=== PATIENT | female | born 1985 | race Caucasian/White ===

== ENCOUNTER 2025-02-06 10:11 | Outpatient (CLI) | payer OTHER, SELFPAY ==
--- NOTE | 2025-02-06 10:45 | CRLHL7_ITS ---
For Patients: As a result of the Century Cures Act, medical imaging exams and procedure reports are released immediately into your electronic medical record. You may view this report before your referring provider. If you have questions, please contact your health care provider. DIGITAL DIAGNOSTIC BILATERAL MAMMOGRAM USING TOMOSYNTHESIS AND COMPUTER-AIDED DETECTION RIGHT BREAST ULTRASOUND CLINICAL HISTORY: RIGHT breast lump. COMPARISON: 05/23/2022. TECHNIQUE: Digital BILATERAL mammogram in four projections with computer-aided detection. Tomosynthesis was used in this interpretation. Real-time ultrasound imaging of RIGHT breast with imaging documentation. Scanning was performed by both the technologist and the radiologist. BREAST COMPOSITION: There are scattered areas of fibroglandular density. FINDINGS: 3D CC/MLO BILATERAL mammogram images submitted. No suspicious masses or architectural distortion. No suspicious calcifications or adenopathy. Targeted ultrasound performed in the area of concern at 11 o`clock 3 cm from the nipple. Normal fibroglandular tissue is present with no evidence of shadowing lesion. Findings are similar to the upper outer quadrant of the LEFT breast. IMPRESSION: No suspicious findings. No evidence of malignancy. RECOMMENDATIONS: Routine screening mammography. A lay language report of this examination will be provided to the patient. BI-RADS Category 2: Benign Dictated by Arturo Aguilar MD @ 02/06/2025 12:31:28 PM jj/Dictated by: Arturo Aguilar MD @ 02/06/2025 12:31:00 PM (Electronically Signed)
--- NOTE | 2025-02-06 11:15 | CRLHL7_ITS ---
For Patients: As a result of the Cures Act, medical imaging exams and procedure reports are released immediately into your electronic medical record. You may view this report before your referring provider. If you have questions, please contact your health care provider. SEE DIGITAL DIAGNOSTIC BILATERAL MAMMOGRAM PERFORMES SAME DAY CRL:prabha armando/Dictated by: Arturo Aguilar MD @ 02/06/2025 12:31:00 PM (Electronically Signed)
== END 2025-02-06 10:12 | disposition home or self-care (01) ==
LOC: MAMMO 10:11
PROVIDERS: PCP Physician Assistant Medical; Visit Provider Physician Assistant Medical
DX: N63.11 Unspecified lump in the right breast, upper outer quadrant (principal); N64.59 Other signs and symptoms in breast
CPT/HCPCS: 76642; 77066; G0279

== ENCOUNTER 2025-02-10 10:07 | Outpatient (CLI) | payer OTHER, SELFPAY | END 2025-02-10 10:08 | disposition home or self-care (01) | LOC: NFLDREF 02-11 08:59 | PROVIDERS: PCP Physician Assistant Medical; Referring Provider Physician Assistant Medical; Visit Provider Physician Assistant Medical | DX: E66.01 Morbid (severe) obesity due to excess calories (principal); R79.89 Other specified abnormal findings of blood chemistry; R73.01 Impaired fasting glucose; E78.5 Hyperlipidemia, unspecified; I10 Essential (primary) hypertension; N39.0 Urinary tract infection, site not specified; F41.9 Anxiety disorder, unspecified; Z12.4 Encounter for screening for malignant neoplasm of cervix; Z11.3 Encounter for screening for infections with a predominantly sexual mode of transmission; Z11.59 Encounter for screening for other viral diseases | CPT/HCPCS: 80053; 80061; 84443; 86703; 86803; 87086 ==

== ENCOUNTER 2025-02-12 11:43 | Outpatient (CLI) | payer OTHER, SELFPAY ==
[2025-02-12 12:21] LABS: Lab Add On Test New Spec Needed
[2025-02-12 23:24] LABS: Chlamydia DNA Amplified* NOT DETECTED (No Detected); GC DNA Amplified* NOT DETECTED (No Detected)
[2025-02-14 05:39] LABS: HPV Source Cervix; HPV, High Risk by TMA Not Detected
[2025-02-20 14:59] LABS: Pap Test Reviewed by Path Done
== END 2025-02-12 11:44 | disposition home or self-care (01) ==
PROVIDERS: PCP Physician Assistant Medical; Visit Provider Physician Assistant Medical
DX: R73.01 Impaired fasting glucose (principal); R79.89 Other specified abnormal findings of blood chemistry; Z12.4 Encounter for screening for malignant neoplasm of cervix
CPT/HCPCS: 87491; 87591; 87624; 87625; 88141; 88142

== ENCOUNTER 2025-07-21 12:18 | Emergency (ER) | payer OTHER, SELFPAY ==
--- OUTSIDE RECORDS SUMMARY | 2025-07-21 12:20 | XMS_ITS | Clinical Summary ---
Author Organization [facility] Address [address] [place] [address] Care Team Providers Care Slasher Operator Name Role Phone Elsewhere, Pcp Primary Care Provider Unavailabl e Source Comments Patient records contain information from all sites at [facility]. For routine questions regarding patient records, call [phone] during business hours, M-F 8:00 AM - 5:00 PM Central Time. 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 albuterol 90 mcg/actuation inhaler Inhale 2 puffs as needed. 8 Active escitalopram (LEXAPRO) 20 mg tablet Take 20 mg by mouth daily. 2 Active citalopram (CeleXA) 20 mg tablet Take 20 mg by mouth daily. Active rosuvastatin (CRESTOR) 5 mg tablet Take 5 mg by mouth daily. Active tirzepatide (Zepbound) 2.5 mg/0.5 mL injectionIndica tions:Steatohep atitis Non Alcoholic,Morbi d Obesity Body Mass Index 40.0-44.9 Adult (HCC) Inject 2.5 mg under the skin every 7 (seven) days. Month #1. Follow dose titration instructions, as tolerated. May increase to next higher strength after four weekly doses. Refill is permitted if extended use at this dose is needed. 2 mL 1 4 Active tirzepatide (Zepbound) 5 mg/0.5 mL injectionIndica tions:Steatohep atitis Non Alcoholic,Morbi d Obesity Body Mass Index 40.0-44.9 Adult (HCC) Inject 5 mg under the skin every 7 (seven) days. Month #2. Follow dose titration instructions, as tolerated. May increase to next higher strength after four weekly doses. Refill is permitted if extended use at this dose is needed. 2 mL 1 4 Active tirzepatide (Zepbound) 7.5 mg/0.5 mL injectionIndica tions:Steatohep atitis Non Alcoholic,Morbi d Obesity Body Mass Index 40.0-44.9 Adult (HCC) Inject 7.5 mg under the skin every 7 (seven) days. Month #3. Follow dose titration instructions, as tolerated. May increase to next higher strength after four weekly doses. Refill is permitted if extended use at this dose is needed. 2 mL 1 4 Active tirzepatide (Zepbound) 10 mg/0.5 mL injectionIndica tions:Steatohep atitis Non Alcoholic,Morbi d Obesity Body Mass Index 40.0-44.9 Adult (HCC) Inject 10 mg under the skin every 7 (seven) days. Month #4. Follow dose titration instructions, as tolerated. May increase to next higher strength after four weekly doses. Refill is permitted if extended use at this dose is needed. 2 mL 1 4 Active tirzepatide (Zepbound) 12.5 mg/0.5 mL injectionIndica tions:Steatohep atitis Non Alcoholic,Morbi d Obesity Body Mass Index 40.0-44.9 Adult (HCC) Inject 12.5 mg under the skin every 7 (seven) days. Month #5. Follow dose titration instructions, as tolerated. May increase to next higher strength after four weekly doses. Refill is permitted if extended use at this dose is needed. 2 mL 1 4 Active tirzepatide (Zepbound) 15 mg/0.5 mL injectionIndica tions:Steatohep atitis Non Alcoholic,Morbi d Obesity Body Mass Index 40.0-44.9 Adult (HCC) Inject 15 mg under the skin every 7 (seven) days. Month #6 and continue. 2 mL 11 4 Active valsartan (Diovan) 80 mg tablet Take 1 tablet by mouth daily. 5 Active Active Problems Problem Noted Date Diagnosed Date Morbid Obesity Body Mass Index 40.0-44.9 Adult 0 05/01/2024 Steatohepatitis Non Alcoholic 07/07/2022 Hyperlipidemia 09/22/2016 Encounters Date Type Department Care Team Description 06/04/2025 9:01 AM CDT - 06/04/2025 11:59 PM CDT Hospital Encounter Department of Radiology, [facility], in [address] [phone] Selina Brennan M.D. Madhavan, Ajay A, M.D. Pain Low Back Unspecified Discharge Disposition: Home or Self Care 06/01/2025 3:00 PM CDT Office Visit Department of Physical Medicine and Rehabilitation in [address] [phone] Selina Brennan M.D. Pain Low Back Unspecified (Primary Dx) 06/01/2025 11:43 AM CDT - 06/01/2025 11:59 PM CDT Hospital Encounter Department of Radiology, [facility], in [address] [phone] Selina Brennan M.D. Pain Low Back Unspecified Discharge Disposition: Home or Self Care 05/28/2025 Orders Only Virtual Review in [address] [phone] Jessica Salazar from Last 3 Months Immunizations Immunization Administration Dates Next Due Influenza Split 09/20/2015 MMR 07/21/2014 Tdap 07/11/2018, 4,06/30/2014,2012 influenza trivalent vaccine (6 months and older)(PF) 09/17/2014,10/03/2013,08/15/2012 influenza vaccine quad (FLUZONE/FLUARIX) (6 months and older)(PF) 09/04/2023,10/09/2022,08/29/2019,2017,10/04/2017,09/22/2016 Family History Medical History Relation Name Comments ADD Father Kiko Arita Asthma Father Kiko Arita Hyperlipidemia Father Kiko Arita Kidney cancer Father Kiko Arita Other cancer Father Kiko Arita Bladder cancer Skin cancer Maternal Grandfather Haris Villalta Arthritis Maternal Grandmother Mila Villalta Diabetes Mother Mother Hypertension Mother Mother Sleep apnea Mother Mother Coronary artery disease Paternal Grandfather Nishant Lombardo uan Lung cancer Paternal Grandfather Nishant Arita Breast cancer Paternal Grandmother Glenny Arita Asthma Son 1 Andreas Oropeza ADD Son 2 Trist Asthma Son 3 Andreas Oropeza ADD Son 4 Trist Relation Name Status Comments Father Kiko Arita Maternal Grandfather Haris Villalta Maternal Grandmother Mila Villalta Mother Mother Paternal Grandfather Nishant Arita Paternal Grandmother Glenny Arita Son 1 Andreas Oropeza Son 2 Trist Son 3 Andreas Oropeza Alive Son 4 Trist Alive Social History Tobacco Use Types Packs/Day Years Used Date Smoking Tobacco: Never Smokeless Tobacco: Never Tobacco Cessation:Counseling Given: Not Answered Alcohol Use Standard Drinks/Week Comments Yes 7 (1 standard drink = 0.6 oz pur e alcohol) [facility] Utilities Answer Date Recorded In the past 12 months has [facility] [employer], [employer], or [employer] threatened to shut off services in your home? No 05/29/2025 Humiliation, Afraid, Rape, and Kick questionnair e Answer Date Recorded Within the last year, have y ou been afraid of your partner or ex-partner? No 04/03/2023 Within the last year, have y ou been humiliated or emotionally abused in other ways by your partner or ex-partner? No Within the last year, have y ou been kicked, hit, slapped, or otherwise physically hurt by your partner or ex-partner? No 04/03/2023 Within the last year, have y ou been raped or forced to have any kind of sexual activity by your partner or ex-partner? No 04/03/2023 Hunger Vital Sign Answer Date Recorded Within the past 12 months, y ou worried that your food would run out before you got the money to buy more. Never true 05/29/20 25 Within the past 12 months, t he food you bought just didn't last and you didn't have money to get more. Never true 05/29/2025 PRAPARE - Transportation Answer Date Re corded In the past 12 months, has l ack of transportation kept you from medical appointments or from getting medications? No 05/19 In the past 12 months, has l ack of transportation kept you from meetings, work, or from getting things needed for daily living? No 05/29/2025 Housing Stability Answer Date Recorded What is your living situation today? I have a [facility] place to live 05/29/2025 Education Answer Date Recorded What is the highest level of school you have completed or the highest degree you have received? 12th grade 04/03/2023 Comments No Sex and Gender Information Value Date Recorded Sex Assigned at Female 05/18/2022 8:15 PM CDT Legal Sex Female 10:17 AM [employer] Gender Identity Female 05/18/2022 8:15 PM CDT Sexual Orientation Straight 05/18/2022 8: 15 PM CDT Last Filed Vital Signs Vital Sign Reading Time Taken Comments Blood Pressure 111/73 06/04/2025 10:23 AM CDT Pulse 77 06/04/2025 10:13 AM CDT Temperature 37.1 C (98.8 F) 06/04/2025 10:04 AM CDT Respiratory Rate 19 10/30/2023 12:1 5 PM [employer] Oxygen Saturation 99% 06/04/2025 10: 23 AM CDT Inhaled Oxygen Concentration - - Weight 120 kg (264 lb 8.8 oz) 4 4:27 PM CDT self reported Height 166.7 cm (5' 5.63) 08/01/2022 1 0:11 AM CDT Body Mass Index 43.18 08/01/2022 10:11 AM CDT Plan of Treatment Health Maintenance Due Date Last Done Comments Cervical/Vaginal Cancer Screening 1984 HIV Screening 1984 Hepatitis A Vaccines (1 of 2 - Risk 2-dose series) 2003 Hepatitis B Vaccines (1 of 3 - 19+ 3-dose series) 2003 Pneumococcal vaccine (0-49 years) (1 of 2 - PCV) 2003 HPV Vaccines (1 - 3-dose SCDM series) 2011 Mammogram 05/23/2023 05/23/2022 COVID-19 Vaccine ( season) 2024 09/22/2021, 03/22/2021, 03/01/2021 Creatinine Level (Kidney Function Test) 10/30/2024 10/30/2023, 06/24/2023, 05/18/2022, Additional history exists Potassium Level 10/30/2024 10/30/2023, 08/0 04/2023, 05/18/2022, Additional history exists Sodium Level 10/30/2024 10/30/2023, 08/0 04/2023, 05/18/2022, Additional history exists Depression Screening (Annual PHQ-2) 11/19/2024 Influenza Vaccine (#1) 2025 , 09/04/2023, 10/09/2022, Additional history exists Lipid (Cholesterol) Screening 10/03/2027 10/03/2022, 07/21/2022, 05/18/2022, Additional history exists DTaP,Tdap,and Td Vaccines (5 - Td or Tdap) 07/11/2028 07/11/2018, 07/20/2014, 06/30/2014, Additional history exists Hepatitis B Screening Discontinued 05/26/2022 IPV Vaccines Aged Out No longer eligi ble based on patient's age to complete this topic Procedures Procedure Name Priority Date/Time Associated Diagnosis Comments FL SACROILIAC JOINT INJECTION BILATERAL RAD - Routine (most inpatients and all outpatients) 06/04/2025 10:20 AM CDT Pain Low Back Unspecified DX LUMBAR SPINE 4+ VIEWS RAD - Routine (most inpatients and all outpatients) 06/01/2025 12:36 PM CDT Pain Low Back Unspecified BASIC METABOLIC PANEL, S/P STAT 10/30/2023 10:31 AM [employer] LIPID PANEL, S Routine 10/03/2022 11:30 AM [employer] Morbid Obesity Body Mass Index 40.0-44.9 Adult (HCC) Hyperlipidemia HEPATITIS B SURFACE ANTIGEN Routine 05/26/2022 9:40 AM CDT Abnormal Liver Function Test BI BREAST SCREENING BILATERAL WITH TOMOSYNTHESIS RAD - Routine (most inpatients and all outpatients) 05/23/2022 2:52 PM CDT Screening Mammogram Breast Cancer from Last 3 Months or Most Recently Relevant to Health Maintenance Results * FL Sacroiliac Joint Injection Bilateral (06/04/2025 10:20 AM CDT) Impressions [id number] - 06/04/2025 10:59 AM CDT Fluoroscopically-guided bilateral sacroiliac joint injections. NR Narrative [id number] - 06/04/2025 10:59 AM CDT EXAM: FL SACROILIAC JOINT INJECTION BILATERAL Pain Score: Pre-procedural pain was rated: 3/10 Post-procedural pain was rated: 1/10 Medications: Steroid: 9 mg betamethasone Local anesthetic: 22.5 mg 0.5% ropivacaine INDICATION: The patient reports the current pain syndrome to be of >1 year duration and presents today for a maintenance injection. TECHNIQUE: Patient has chronic low back pain around the SI joints which has previously responded to SI joint injections. Repeated injections were requested and performed. Using usual sterile technique, fluoroscopic guidance, and local anesthesia, 4.75 inch 25-gauge spinal needles were advanced to the posterior inferior aspect of both sacroiliac joints. With final needle tip positions, a small amount of iodinated contrast was used to confirm each location. Transient vascular uptake was not observed with final needle positions. 3 cc of 3:1 mixture of anesthetic:steroid was administered at each joint. Each needle was withdrawn, restyletted, and removed. The patient experienced no complication. PREPROCEDURE: Patient seen and evaluated. Allergies, pertinent medications, and history reviewed. Discussed risks (including, but not limited to, bleeding and infection); benefits; and alternatives for procedure and obtained informed consent. The side and site of the procedure were marked, when applicable, at the time of consent. The patient understood the information and questions answered. Immediately prior to starting the procedure in the presence of the assisting personnel, a procedural pause was conducted to verify correct patient identity and verification of procedure to be performed and as applicable, correct side and site, correct patient position, availability of implants, special equipment, or special requirements, and all image and specimen identification data. The roles and responsibilities of care team members, residents, and fellows were discussed. Procedure Note Sam Salinas M.D. - 06/04/2025 EXAM: FL SACROILIAC JOINT INJECTION BILATERAL Pain Score: Pre-procedural pain was rated: 3/10 Post-procedural pain was rated: 1/10 Medications: Steroid: 9 mg betamethasone Local anesthetic: 22.5 mg 0.5% ropivacaine INDICATION: The patient reports the current pain syndrome to be of >1 yearduration and presents today for a maintenance injection. TECHNIQUE: Patient has chronic low back pain around the SI joints which haspreviously responded to SI joint injections. Repeated injections wererequested and performed. Using usual sterile technique, fluoroscopic guidance, and localanesthesia, 4.75 inch 25-gauge spinal needles were advanced to theposterior inferior aspect of both sacroiliac joints. With final needle tippositions, a small amount of iodinated contrast was used to confirm each location. Transient vascular uptake was notobserved with final needle positions. 3 cc of 3:1 mixture ofanesthetic:steroid was administered at each joint. Each needle waswithdrawn, restyletted, and removed. The patient experienced no complication. PREPROCEDURE: Patient seen and evaluated. Allergies, pertinentmedications, and history reviewed. Discussed risks (including, but notlimited to, bleeding and infection); benefits; and alternatives forprocedure and obtained informed consent. The side and site of the procedure were marked, when applicable, at the time ofconsent. The patient understood the information and questions answered.Immediately prior to starting the procedure in the presence of theassisting personnel, a procedural pause was conducted to verify correct patient identity and verification of procedureto be performed and as applicable, correct side and site, correct patientposition, availability of implants, special equipment, or specialrequirements, and all image and specimen identification data. The roles and responsibilities of care teammembers, residents, and fellows were discussed. IMPRESSION: Fluoroscopically-guided bilateral sacroiliac joint injections. NR us Selina Brennan M.D. IM FLUOROSCOPY PROCEDURES Final Result [id number] NA * DX Lumbar Spine 4+ Views (06/01/2025 12:36 PM CDT) Anatomical Region Laterality Modality Lumbar Spine, Musculoskeleta l RST LOS, Neuroradiology ARZ LOS, Muskuloskeletal FLA LOS N/A Digital Radiography Impressions 06/01/2025 12:37 PM CDT Mild to moderate multilevel degenerative spondylosis with low-grade vertebral malalignments. No change in alignment between flexion and extension views. Narrative 06/01/2025 12:37 PM CDT EXAM: DX LUMBAR SPINE 4+ VIEWS Procedure Note Roger Solo M.D. - 06/01/2025 EXAM: DX LUMBAR SPINE 4+ VIEWS IMPRESSION: Mild to moderate multilevel degenerative spondylosis with low-gradevertebral malalignments. No change in alignment between flexion andextension views. us Selina Brennan M.D. IMG DIAGNOSTIC IMAGING PRO CEDURES Final Result * Basic Metabolic Panel (10/30/2023 10:31 AM [employer]) Potassium, P 4.0 3.6 - 5.2 mmol/L 10/30/2023 10:58 AM [employer] STMA Sodium, P 138 135 - 145 mmol/L 10/30/2023 10:58 AM [employer] STMA Chloride, P 101 98 - 107 mmol/L 10/30/2023 10:58 AM [employer] STMA Bicarbonate, P 25 22 - 29 mmol/L 10/30/2023 10:58 AM [employer] STMA Anion Gap, P 12 7 - 15 10/30/2023 10:58 AM [employer] STMA BUN (Blood Urea Nitrogen), P 10 6 - 21 mg/dL 10/30/2023 10:58 AM [employer] STMA Creatinine 0.69 0.59 - 1.04 mg/dL 10/30/2023 10:58 AM [employer] STMA Estimated GFR (eGFR) >90 >=60 mL/min/BSA 10/30/2023 10:58 AM [employer] STMA Comment: Estimated GFR calculated using the 2020 CKD_EPI creatinine equation. Calcium, Total, P 9.7 8.6 - 10.0 mg/dL 10/30/2023 10:58 AM [employer] STMA Glucose, P 98 70 - 140 mg/dL 10/30/2023 10:58 AM [employer] STMA Blood (Blood, Venous) 10/30/2023 10:31 AM [employer] 10/30/2023 10:41 AM [employer] us Carmen Pacheco M.D. LAB BLOOD ADD-ON Final Res ult [facility] [address] [place] [address], [facility] [address] [place] [address] * (ABNORMAL) Lipid Panel (10/03/2022 11:30 AM [employer]) Triglycerides 77 mg/dL 10/03/2022 11:59 AM [employer] CNFL Comment: ----REFERENCE VALUE---- Normal: <150 mg/dL Borderline High: 150-199 mg/dL High: 200-499 mg/dL Very High: > or =500 mg/dL Cholesterol, Total 214(H) mg/dL 2021 11:59 AM [employer] CNFL Comment: ----REFERENCE VALUE---- Desirable: < 200 mg/dL Borderline High: 200 - 239 mg/dL High: > or = 240 mg/dL Cholesterol, LDL, Calculated 150(H) mg/dL 10/03/2022 11:59 AM [employer] CNFL Comment: ----REFERENCE VALUE---- Desirable: <100 mg/dL Above Desirable: 100-129 mg/dL Borderline High: 130-159 mg/dL High: 160-189 mg/dL Very High: >=190 mg/dL ----ADDITIONAL INFORMATION---- LDL cholesterol calculated using the Richardson/NIH equation. Cholesterol, HDL 50 >=50 mg/dL 10/03/20 11:59 AM [employer] CNFL Cholesterol, Non-HDL, Calculated 164(H) mg/dL 10/03/2022 11:59 AM [employer] CNFL Comment: ----REFERENCE VALUE---- Desirable: <130 mg/dL Above Desirable: 130-159 mg/dL Borderline High: 160-189 mg/dL High: 190-219 mg/dL Very High: > or =220 mg/dL Fasting (8 HR or more) yes 10/03/2022 11:32 AM [employer] CNFL Blood (Blood, Venous) 10/03/2022 11:30 AM [employer] 10/03/2022 11:32 AM [employer] us Ivone Pham LAB BLOOD ADD-ON Final Result [facility] [address] [place] [address], [facility] [place] [address] * Hepatitis B Surface Antigen (05/26/2022 9:40 AM CDT) HBs Antigen, S Negative Negative 05/26/2022 2:24 PM CDT [facility] Blood (Blood, Venous) 05/26/2022 9:40 AM CDT 05/26/2022 1:31 PM CDT us Rowan Brown M.D. LAB MICROBIOLOGY - BLOOD VIRIDIANA SARABIA Final Result [facility] [address] [place] [address] [facility] Dept. of Laboratory Medicine and Pathology [address] [place] [address] * BI Breast Screening Bilateral with Tomosynthesis (05/23/2022 2:52 PM CDT) Anatomical Region Laterality Modality Breast, Breast Imaging RST L OS, Breast Imaging ARZ LOS, Breast Imaging FLA LOS Bilateral Mammography 05/23/2022 2:59 PM CDT Impressions 05/23/2022 3:02 PM CDT Negative. RECOMMENDATION: Annual Screening Mammogram ASSESSMENT: BI-RADS: 1: Negative. Narrative 05/23/2022 3:02 PM CDT EXAM: BI BREAST SCREENING BILATERAL WITH TOMOSYNTHESIS Current study was evaluated with a Computer Aided Detection (CAD) system. INDICATION: Screening mammogram. COMPARISON: Prior exam(s) were available and reviewed for comparison. DENSITY: c. The breast(s) are heterogeneously dense, which may obscure small masses. FINDINGS: No mammographic findings of malignancy. Procedure Note Cleveland Phan M.D. - 05/23/2022 EXAM: BI BREAST SCREENING BILATERAL WITH TOMOSYNTHESIS Current study was evaluated with a Computer Aided Detection (CAD) system. INDICATION: Screening mammogram. COMPARISON: Prior exam(s) were available and reviewed for comparison. DENSITY: c. The breast(s) are heterogeneously dense, which may obscuresmall masses. FINDINGS: No mammographic findings of malignancy. IMPRESSION: Negative. RECOMMENDATION: Annual Screening Mammogram ASSESSMENT: BI-RADS: 1: Negative. Xiao Calvo M.D. IM BI PROCEDURES Final Result from Last 3 Months or Most Recently Relevant to Health Maintenance Insurance [place] [employer] Advance Directives For more information, please contact: [phone] Documents on File Type Date Recorded Patient Academic Support Director Expl anation Advance Directives 07/05/2023 6:02 AM Ras Arita HCPOA/ADVOCATE/AGENT/REP RESENTATIVE/SURROGATE Healthcare Agents on File Name Relationship Healthcare Agent [facility] Communication Ras Oropeza Spouse Health Care Agent [email or web address] Jing Arita Mother First Alternate Health Care Agent Care Teams Slasher Operator Relationship Specialty Start Date End Date Elsewhere, Pcp PCP - General Internal Medicine 03/19/23
--- OUTSIDE RECORDS SUMMARY | 2025-07-21 12:20 | XMS_ITS | Clinical Summary ---
[facility] Address [address] [place] [address] Care Team Providers Care Batting Machine Operator Name Role Phone Unavailable Primary Care Provider Unavailabl e Source Comments You are receiving this document as you are listed as the primary care provider,follow-up provider, or the patient has been referred to you for consultation.This is in compliance with the Medicare and[facility] EHR Incentive Program,which states Providers who transition their patient to another setting of careor provider of care or refers their patient to another provider of care shouldprovide summary care record for each transition of care or referral. [facility] Allergies No known active allergies Medications escitalopram oxalate (LEXAPRO) 20 MG tablet Take 1 Tablet (20 mg) by mouth daily. 12/16/2023 Active rosuvastatin (CRESTOR) 5 MG tablet Take 1 Tablet (5 mg) by mouth daily. 01/02/2024 Active ofloxacin (OCUFLOX) 0.3 % eye drop solution Right eye: one drop Q2hr x2d then one drop [id number] 10 mL 01/21/2024 Active predniSONE (DELTASONE) 20 MG tablet 2 tabs po qd x 5 days. 10 Tablet 04/09/2024 Active ALBUterol sulfate HFA 108 (90 Base) MCG/ACT inhaler Inhale 2 Puffs every 4 hours as needed for Wheezing. 1 Each 04/09/2024 Active Active Problems No known active problems Social History Tobacco Use Types Packs/Day Years Used Date Smoking Tobacco: Never Smokeless Tobacco: Never Tobacco Cessation:Counseling Given: Not Answered Comments Unknown Sex and Gender Information Value Date Recorded Sex Assigned at Not on file Legal Sex Female 11:15 AM CDT Gender Identity Not on file Sexual Orientation Not on file Last Filed Vital Signs Vital Sign Reading Time Taken Comments Blood Pressure 146/90 04/09/2024 8:54 AM CDT Pulse 96 04/09/2024 8:54 AM CDT Temperature 36.8 C (98.2 F) 04/09/2024 8:54 AM CDT Respiratory Rate 16 04/09/2024 8:54 AM CDT Oxygen Saturation 97% 04/09/2024 8:54 AM CDT Inhaled Oxygen Concentration - - Weight - - Height - - Body Mass Index - - Plan of Treatment Health Maintenance Due Date Last Done Comments Cervical Cancer Screening Due 1984 Hep C Screening (Preventive Services) 1984 Mammogram 1984 HIV Screening (Preventive Services) 2000 Adult Preventive Visit 2002 HepB Vaccine (1) 2003 HPV Vaccine (1 - 3-dose SCDM series) 2011 COVID-19 Vaccine ( - season) 2024 09/22/2021, 03/22/2021, 03/01/2021 Influenza Vaccine (#1) 2025 , 10/09/2022, 08/29/2019, Additional history exists DTaP/Tdap/Td Vaccine (5 - Tdap) 07/11/2028 07/11/2018, 07/20/2014, 06/30/2014, Additional history exists Zoster/Shingles Vaccine (1 of 2) 2034 HepA Vaccine Aged Out No longer eligi ble based on patient's age to complete this topic Hib Vaccine Aged Out No longer eligi ble based on patient's age to complete this topic IPV (Polio) Vaccine Aged Out No longe r eligible based on patient's age to complete this topic MCV4 Vaccine Aged Out No longer eligi ble based on patient's age to complete this topic Meningococcal B Vaccine Aged Out No l onger eligible based on patient's age to complete this topic Pneumococcal Vaccine Aged Out No long er eligible based on patient's age to complete this topic Insurance AETNA
--- OUTSIDE RECORDS SUMMARY | 2025-07-21 12:20 | XMS_ITS | Clinical Summary ---
Author Organization [facility] Address [address] [place] [address] Care Team Providers Care Geographic Information Systems Engineer Name Role Phone None Primary Care Provider Unavailabl e Allergies Active Allergy Reactions Criticality Noted Date Comments Avocado Anaphylaxis,Anxiety, Dyspn ea,Other - Describe In Comment Field High 10/19/2010 Tightness in throat Cat Dander Runny Nose 09/21/2016 Tree Nut Anaphylaxis High 06/24/2023 Raw Fruit Anaphylaxis High 09/21/2016 Tree Nut Other - Describe In Comment Field 09/26/2018 Tightness in throat Tree Nuts Anaphylaxis,Anxiety, Dyspn ea High 09/21/2016 Medications ibuprofen (ADVIL; MOTRIN) 200 mg tablet Take 200 mg by mouth every 6 hours. Active rosuvastatin (Crestor) 5 mg tablet Take 5 mg by mouth once daily. Active escitalopram oxalate (LEXAPRO) 20 mg tablet Take 20 mg by mouth. 4 Active benzonatate (TESSALON) 200 mg capsuleIndicati ons:Acute cough Take 1 Capsule (200 mg) by mouth 3 times daily if needed for Cough. 21 Capsule 4 Active albuterol HFA (PRO-AIR; VENTOLIN; PROVENTIL) 90 mcg/actuation inhalerIndicati ons:Acute cough Inhale 2 Puffs by mouth every 4 hours if needed for Shortness Of Breath. 18 g 4 Active albuterol 0.083% (2.5 mg/3 mL) neb solutionIndicat ions:Acute cough Inhale 3 mL (2.5 mg) via a nebulizer every 4 hours if needed for Shortness Of Breath or Wheezing. 30 Each 4 Active inhalational spacing deviceIndicatio ns:Acute cough For home use. 1 Each 4 Active codeine-guaiFEN esin 10-100 mg/5 mL liquidIndicatio ns:Acute cough Take 5-10 mL by mouth every 4 hours if needed for Cough. 118 mL 4 Active Active Problems No known active problems Social History Tobacco Use Types Packs/Day Years Used Date Smoking Tobacco: Never Passive Smoke Exposure: Never Smokeless Tobacco: Never Tobacco Cessation:Counseling Given: Not Answered Alcohol Use Standard Drinks/Week Comments Yes 7 (1 standard drink = 0.6 oz pur e alcohol) Social Connections Answer Date Recorded Do you often feel lonely or isolated from those around you? 0 10/11/2024 Financial Resource Strain Answer Date R ecorded Difficulty of Paying Living Expenses 3 12/20/2024 Difficulty of Paying Living Expenses Not on file 12/20/2024 Food Insecurity Answer Date Recorded Do you worry your food will run out before you are able to buy more? 1 10/11/2024 Transportation Needs Answer Date Record ed Does lack of transportation keep you from medica l appointments? 1 10/11/2024 Does lack of transportation keep you from work, meetings or getting things that you need? 1 10/11/2024 Housing Stability Answer Date Recorded What is your housing situation today? 1 10/11/2024 Utilities Answer Date Recorded Do you have trouble paying f or utilities (for example, heat, electricity, water, phone)? 1 10/11/2024 Comments No Sex and Gender Information Value Date Recorded Sex Assigned at Not on file Legal Sex Female 6:24 PM CDT Gender Identity Not on file Sexual Orientation Not on file Obstetrics History Comments 3 children Last Filed Vital Signs Vital Sign Reading Time Taken Comments Blood Pressure 142/97 10/14/2024 3:02 PM SALOON KEEPER Pulse 85 10/14/2024 3:02 PM SALOON KEEPER Temperature 36.1 C (97 F) 10/14/2024 3:02 PM SALOON KEEPER Respiratory Rate 16 10/14/2024 3:02 PM SALOON KEEPER Oxygen Saturation 98% 10/14/2024 3:02 PM SALOON KEEPER Inhaled Oxygen Concentration - - Weight 117.1 kg (258 lb 3.2 oz) 10/14/2024 3:02 PM SALOON KEEPER Height 167.6 cm (5' 6) 10/14/2024 3:02 PM SALOON KEEPER Body Mass Index 41.67 10/14/2024 3:02 PM SALOON KEEPER Plan of Treatment Health Maintenance Due Date Last Done Comments Tetanus booster 1995 Depression screening for age 12+ 1996 HIV for age 15-65 1999 Hepatitis C screening for ag e 18-79 2002 Hepatitis B series for 19+ ( 1 of 3 - 19+ 3-dose series) 2003 Pap test for age 21-65 2005 COVID-19 vaccine series ( season) 2024 09/22/2021, 03/22/2021, 03/01/2021 Influenza Vaccine (#1) 2025 BMI (ht and wt on same day) for age 18+ 10/14/2025 10/14/2024 Pneumococcal series for age 6-49 Aged Out No longer eligible b ased on patient's age to complete this topic Insurance [place] [facility] AETNA [employer] Care Teams Geographic Information Systems Engineer Relationship Specialty Start Date End Date None . PCP - General 10/11/24
--- OUTSIDE RECORDS SUMMARY | 2025-07-21 12:20 | XMS_ITS | Encounter Summary ---
Author Organization [facility] Address [address] [place] [address] Care Team Providers Care Acquisition Professional Name Role Phone Elsewhere, Pcp Primary Care Provider Unavailabl e Encounter Details Date Type Department Care Team (Late st Contact Info) Description 05/28/2025 Orders Only Virtual Review in [place], [place] [address] [place] [address] Jessica Salazar Social History Tobacco Use Types Packs/Day Years Used Date Smoking Tobacco: Never Smokeless Tobacco: Never Alcohol Use Standard Drinks/Week Comments Yes 7 (1 standard drink = 0.6 oz pur e alcohol) [facility] Utilities Answer Date Recorded In the past [address] [facility] [employer], gas, oil, or water ulike threatened to shut off services in your [...] your living situation today? I have a [facility] place to live 05/29/2025 Education Answer Date Recorded What is the highest level of school you have completed or the highest degree you have received? 12th grade 04/03/2023 Comments No Sex and Gender Information Value Date Recorded Sex Assigned at Female 05/18/2022 8:15 PM CDT Legal Sex Female 10:17 AM INVASIVE CARDIOVASCULAR TECHNOLOGIST Gender Identity Female 05/18/2022 8:15 PM CDT Sexual Orientation Straight 05/18/2022 8: 15 PM CDT documented as of this encounter Plan of Treatment Not on file documented as of this encounter Visit Diagnoses Not on filedocumented in this encounter Care Teams Acquisition Professional Relationship Specialty Start Date End Date Elsewhere, Pcp PCP - General Internal Medicine 03/19/23 documented as of this encounter
--- OUTSIDE RECORDS SUMMARY | 2025-07-21 12:20 | XMS_ITS | Clinical Summary ---
Author Organization [facility] Address [address] [place] [address] Care Team Providers Care Blunger Machine Operator Name Role Phone No Ref-Primary, Physician Primary Care Provider Jessica Davila CANVAS GOODS SUPERVISOR EDUCATION AND TRAINING COORDINATOR Unavailable + Allergies Active Allergy Reactions Criticality Noted Date Comments Avocado Other (See Comments) 09/26/2018 Tightness in throat Nuts Other (See Comments) 09/26/2018 Tightness in throat Medications escitalopram (LEXAPRO) 10 MG tablet Take 1 tablet (10 mg) by mouth daily 30 tablet 1 8 Active ranitidine (ZANTAC) 150 MG tabletIndication s:Encounter for supervision of other normal Take 1 tablet (150 mg) by mouth 2 times daily 60 tablet 1 8 Active Vit-Fe Fumarate-FA ( MULTIVITAMIN PLUS IRON) 27-0.8 MG TABS per tablet Take 1 tablet by mouth daily 100 tablet 3 8 Active albuterol (PROAIR HFA/PROVENTIL HFA/VENTOLIN HFA) 108 (90 Base) MCG/ACT InhalerIndicatio ns:Allergic rhinitis due to pollen, unspecified chronicity, unspecified seasonality Inhale 2 puffs into the lungs every 6 hours as needed for shortness of breath / dyspnea or wheezing 1 Inhaler 1 8 Active valACYclovir (VALTREX) 1000 mg tabletIndication s:Herpes zoster without complication Take 1 tablet (1,000 mg) by mouth 3 times daily for 10 days 30 tablet 9 Active benzonatate (TESSALON) 200 MG capsuleIndicatio ns:Cough Take 1 capsule (200 mg) by mouth 3 times daily as needed for cough 30 capsule 2 Active guaiFENesin-code ine (ROBITUSSIN AC) 100-10 MG/5ML solutionIndicati ons:Cough Take 10 mLs by mouth every 6 hours as needed for cough 118 mL 2 Active methylPREDNISolo ne (MEDROL DOSEPAK) 4 MG tablet therapy packIndications: Mild intermittent asthma with acute exacerbation Follow package instructions 21 tablet 2 Active Active Problems Problem Noted Date Diagnosed Date Indication for care in labor or delivery 018 Vaginal delivery 09/26/2018 Supervision of other normal , antepartu m 07/25/2018 Immunizations Immunization Administration Dates Next Due Influenza Vaccine >6 months,quad, PF 08/08/2018 TDAP Vaccine (Adacel) 07/11/2018 Family History Medical History Relation Comments Kidney Cancer Father Breast Cancer Maternal Grandmother Breast Cancer Paternal Grandmother Relation Status Comments Father Alive Maternal Grandmother Mother Alive Paternal Grandmother Social History Tobacco Use Types Packs/Day Years Used Date Smoking Tobacco: Never Smokeless Tobacco: Never Tobacco Cessation:Counseling Given: No Alcohol Use Standard Drinks/Week Comments No 0 (1 standard drink = 0.6 oz pur e alcohol) Adolescent Education Answer Date Record ed Getting School Help Needed Not on file 08/10 Comments No Sex and Gender Information Value Date Recorded Sex Assigned at Not on file Legal Sex Female 12:34 PM SALES PROMOTION DIRECTOR Gender Identity Not on file Sexual Orientation Not on file Last Filed Vital Signs Vital Sign Reading Time Taken Comments Blood Pressure 134/90 08/04/2022 10:29 AM CDT Pulse 88 08/04/2022 10:29 AM CDT Temperature 36.9 C (98.4 F) 08/04/2022 10:29 AM CDT Respiratory Rate 16 09/28/2018 8:00 AM SALES PROMOTION DIRECTOR Oxygen Saturation 96% 08/04/2022 10:29 AM CDT Inhaled Oxygen Concentration - - Weight 117 kg (258 lb) 01/24/2019 10:19 AM SALES PROMOTION DIRECTOR Height 167.6 cm (5' 6) 09/26/2018 10:08 AM SALES PROMOTION DIRECTOR Body Mass Index 41.64 09/26/2018 10:08 AM SALES PROMOTION DIRECTOR Plan of Treatment Health Maintenance Due Date Last Done Comments ANNUAL REVIEW OF HM ORDERS 1984 ASTHMA ACTION PLAN 1984 ASTHMA CONTROL TEST 1984 DIABETES SCREENING 1984 YEARLY PREVENTIVE VISIT 1987 HEPATITIS B VACCINE (1 of 3 - 19+ 3-dose series) 2003 PNEUMOCOCCAL VACCINE: PEDIATRICS (0 to 5 YEARS) AND AT-RISK PATIENTS (6 to 49 YEARS) (1 of 2 - PCV) 2003 HPV TEST 02/22/2021 02/22/2018 PAP 02/22/2021 02/22/2018 LIPID 2024 MAMMO SCREENING 05/23/2024 05/23/2022 COVID-19 VACCINE ( season) 2024 09/22/2021, 03/22/2021, 03/01/2021 PHQ-2 (once per calendar year) 2024 01/24/2019 INFLUENZA VACCINE (#1) 2025 9, 08/08/2018, 10/04/2017, Additional history exists ADVANCE CARE PLANNING 07/11/2028 07/11/2023, 018 DTAP/TDAP/TD VACCINE (5 - Td or Tdap) 07/11/2028 07/11/2018, 07/20/2014, 06/30/2014, Additional history exists ZOSTER VACCINE (1 of 2) 2034 HIV SCREENING Completed 01/31/2018 HEPATITIS C SCREENING Completed 05/26/2022 HPV VACCINE (No Doses Required) Completed MENINGITIS VACCINE Aged Out No longer eligible based on patient's age to complete this topic Procedures Procedure Name Priority Date/Time Associated Diagnosis Comments PAP IMAGED THIN LAYER SCREEN Routine 02/22/2018 12:05 PM CDT Screening for malignant neoplasm of cervix HPV HIGH RISK TYPES DNA CERVICAL Routine 02/22/2018 10:00 AM CDT Screening for malignant neoplasm of cervix HIV ANTIGEN ANTIBODY COMBO Routine 01/31/2018 10:06 AM CDT test positive from Last 3 Months or Most Recently Relevant to Health Maintenance Results * Pap imaged thin layer screen with HPV - recommended age 30 - 65 years (select HPV order below) (02/22/2018 12:05 PM CDT) PAP [facility]IL[facility] Copath Report Patient Name: DAPHNE ROJAS MR#: [id number] Specimen #: [id number] Collected: 02/22/2018 Received: 02/25/2018 Reported: 02/26/2018 11:34 Ordering Phy(s): DANETTE ALVARES For improved result formatting, select 'View Enhanced Report Format' under Linked Documents section. SPECIMEN/STAIN PROCESS: Pap imaged thin layer prep screening (Surepath, FocalPoint with guided screening) Pap-Cyto x 1, HPV ordered x 1 SOURCE: Cervical, endocervical Pap imaged thin layer prep screening (Surepath, FocalPoint with guided screening) SPECIMEN ADEQUACY: Satisfactory for evaluation. -Transformation zone component absent. CYTOLOGIC INTERPRETATION: Negative for intraepithelial lesion or malignancy Electronically signed out by: LYNDA Rinaldi (ASCP) Processed and screened at [facility] [place], [facility] CLINICAL HISTORY: LMP: [id number] , Papanicolaou Test Limitations: Cervical cytology is a screening test with limited sensitivity; regular screening is critical for cancer prevention; Pap tests are primarily effective for the diagnosis/preventi on of squamous cell carcinoma, not adenocarcinomas or other cancers. TESTING LAB LOCATION: [address] [address] COLLECTION SITE: Client: [facility] Location: FELICITA WILSON (R) Cytologic material (specimen) 02/22/2018 12:05 PM CDT 02/25/2018 10:25 AM CDT us Danette Alvares MD LAB - OPTIME CLINICAL SPECIME N Final Result [facility] * HPV High Risk Types DNA Cervical (02/22/2018 10:00 AM CDT) HPV Source SurePath 02/22/2018 12:05 PM CDT [facility] HPV 16 DNA Negative NEG^Nega tive 03/01/2018 2:40 PM CDT [facility] HPV 18 DNA Negative NEG^Nega tive 03/01/2018 2:40 PM CDT [facility] Other HR HPV Negative NEG^Nega tive 03/01/2018 2:40 PM CDT [facility] Final Diagnosis This patient's sample is negative for HPV DNA. 03/01/2018 2:40 PM CDT [facility] Comment: This test was developed and its performance characteristics determined by the [facility] [place]. It has not been cleared or approved by the FDA. The laboratory is regulated under CLIA as qualified to perform high-complexity testing. This test is used for clinical purposes. It should not be regarded as investigational or for research. (Note) METHODOLOGY: The Trang kasey 4800 system uses automated extraction, simultaneous amplification of HPV (L1 region) and beta-globin, followed by real time detection of fluorescent labeled HPV and beta globin using specific oligonucleotide probes . The test specifically identifies types HPV 16 DNA and HPV 18 DNA while concurrently detecting the rest of the high risk types (31, 33, 35, 39, 45, 51, 52, 56, 58, 59, 66 or 68). COMMENTS: This test is not intended for use as a screening device for women under age 30 with normal cervical cytology. Results should be correlated with cytologic and histologic findings. Close clinical followup is recommended. Specimen Description Cervical Cells 02/27/2018 8:51 AM CDT [facility] Comment:[id number] Cervical Cells CERVIX UTERI STRUCTURE / Unknown 02/22/2018 10:00 AM CDT 02/22/2018 12:08 PM CDT Danette Alvares MD LAB - BLOOD ORDERABLES Final Result [facility] [address] [address] [facility] [address] [place] [address] * HIV Antigen Antibody Combo (01/31/2018 10:06 AM CDT) HIV Antigen Antibody Combo Nonreactive NR^Nonrea ctive 02/01/2018 1:34 PM CDT [facility] Comment:HIV-1 p24 Ag & HIV-1 /HIV-2 Ab Not Detected Blood specimen (specimen) 01/31/2018 10:06 AM CDT 01/31/2018 10:11 AM CDT us Danette Alvares MD LAB - BLOOD ORDERABLES Final Result [address] [address] from Last 3 Months or Most Recently Relevant to Health Maintenance Advance Directives For more information, please contact: [phone] Documents on File Type Date Recorded Patient Flight Teacher Expl anation Advance Directives and Living Will 07/11/2023 Health Care Directiv e 06/22/2023 Healthcare Agents on File Name Relationship Healthcare Agent Relationshi p Communication Ras Rojas Spouse Health Care Agent Jing Arita Mother First Alternate Health Care Agent Care Teams Blunger Machine Operator Relationship Specialty Start Date End Date No Ref-Primary, Physician PCP - General 02/22/18 Jessica Davila APRN EDUCATION AND TRAINING COORDINATOR [address] [place] [address] Assigned PCP 07/20/22
[2025-07-21 12:28] VITALS: BP 133/91; PULSE 64; RESP 18; TEMP 36.1; O2SAT 97; BMI 44.2
--- NOTE | 2025-07-21 12:41 | ED_ITS ---
HPI - General Adult General Chief complaint: Abdominal Pain Stated complaint: shaky and blood on stool Time Seen by Provider: 07/21/25 12:40 History of Present Illness HPI narrative: stoamchache, blood in stool, clots, no vaginal bleeding but cramping. Chills and lightheaded as well Pain around belly button Taking zepbound 40-year-old woman presenting to the emergency department with concern of cramping abdominal pain and blood in stool. A couple of days ago had episode vomiting. She is no longer nauseated. Has not had fever. Has now had a couple of days without bowel movement but managed to produce small amount of bloody stool, clots. She is having pain in the mid abdomen and then both sides which will flare up in be rather crampy pretty intense. History of some degree of tendency to constipation but has been worse since initiating zepbound. Bowel movements approximately every 3 days. She will occasionally take what sounds like a Colace but then has many and frequent bowel movements which is what happened here as well but this time appears to be associated with more pain and now bleeding as noted. She does nose day history of an external hemorrhoid that has been present since a but apparently has not cause any trouble. This nausea and vomiting does seem to have coincided with repeat Zepbound injection. With later questioning it appears she has experienced this before The persistent pain and then rectal bleed though is different. Related Data Home Medications ?Medication ?Instructions ?Recorded ?Confirmed albuterol sulfate 90 mcg/actuation 2 inhalation PRN 02/12/25 aerosol inhaler Previous Rx's ?Medication ?Instructions ?Recorded escitalopram oxalate 20 mg tablet 20 mg PO DAILY #90 t abs 01/26/25 alprazolam 0.5 mg tablet 0.5 - 1 mg (1 - 2 x 0.5 mg) PO 02/12/25 QDAY #10 tabs rosuvastatin 5 mg tablet 5 mg PO DAILY for cholestero l #90 04/22/25 tabs tirzepatide (weight loss) 5 mg/0.5 5 mg (0.5 mL) subcu t QWEEK #2 mL 06/19/25 mL subcutaneous solution (Zepbound) valsartan 80 mg tablet 80 mg PO QDAY #90 tabs 07/02 Allergies Allergy/AdvReac Type Severity Reaction Status Date / Time avocado Allergy Intermediate Swelling Verified 07/21/25 12:34 of Lip/Tongue/Throat chestnut Allergy Intermediate Swelling Verified 07/21/25 12:34 of Lip/Tongue/Throat Nut tree Allergy Intermediate Swelling Uncoded 02/12/25 11:45 of Lip/Tongue/Throat Review of Systems Status of ROS: Reports: 6 or more systems reviewed and unremarkable except as noted in History and below PFSH PFS Medical History Abnormal Pap smear of cervix (~01/2025) ?R87.619 - Unspecified abnormal cytological findings in specimens from cervix uteri (ICD-10) Hx of Family History Sister Obesity Mother Obesity High blood pressure Father Bladder cancer Cancer of kidney Paternal Grandmother Breast cancer Social History Narrative: . ( 11 yo, 10 yo, 5 yo boys) Employed- Homemaker Never smoker, No vaping Does not use illicit drugs Does not drink alcohol What is your current living situation?: I presently have a place to live Problems where you live: no known problems In the past 12 months, utilities in danger of being shut off: no In past 12 months, lack of transportation kept you from medical appts, meetings, work, or getting things needed for daily living: no In the past 12 mos, have been you worried that your food would run out before you had money to buy more?: never true In the past 12 mos, the food you bought just didn't last and you didn't have money to buy more?: never true Smoking Status: Former smoker How often do you have a drink containing alcohol: never AUDIT-C Alcohol total score: 0 Non-prescribed substance use: denies use How often does anyone, including family, friends and others, physically hurt you : never How often does anyone, including family, friends and others, insult or talk down to you: never How often does anyone, including family, friends and others, threaten you with harm: never How often does anyone, including family, friends and others, scream or curse at you: never service: No Exam Narrative: Exam Narrative: Pleasant. Looks like she feels uncomfortable. Breathing easily. Skin is warm dry. Looks somewhat flushed over her face. She is well-perfused peripherally. Heart in slower but regular rate and regular rhythm without murmur rub or gallop. Abdomen with present bowel sounds. Soft. Mildly tender in the mid low abdomen. Reported palm size area of periumbilical discomfort as well. No peritoneal signs Alaniz Deferring rectal exam to industrial spraypainter Const: Vital Signs, click to edit/add: Vital Signs - 24 hr 07/21/25 12:28 Temperature 96.9 F L Pulse Rate [Pulse Oximeter] 64 Respiratory Rate 18 Blood Pressure [Le ft Upper Arm] 133/91 H Pulse Oximetry 97 Oxygen Delivery Me thod Room Air Documenting provider has reviewed patient's vital signs: yes Course Vital Signs Vital signs: Initial Vital Signs Temperature 96.9 F L 07/21/25 12:28 Temperature Source Temporal Artery Scan 07/21/25 12:28 Pulse Rate 64 07/21/25 12:28 Respiratory Rate 18 07/21/25 12:28 Blood Pressure 133/91 H 07/21/25 12:28 Blood Pressure Mean 105 07/21/25 12:28 Blood Pressure Position Sitting 07/21/25 12:28 Pulse Oximetry 97 07/21/25 12:28 Oxygen Delivery Method Room Air 07/21/25 12:28 Vital Signs Temperature 96.9 F L 07/21/25 12:28 Pulse Rate 64 07/21/25 12:28 Respiratory Rate 18 07/21/25 12:28 Blood Pressure 133/91 H 07/21/25 12:28 Pulse Oximetry 97 07/21/25 12:28 Oxygen Delivery Method Room Air 07/21/25 12:28 Temperature 96.9 F L 07/21/25 12:28 Pulse Rate 64 07/21/25 12:28 Respiratory Rate 18 07/21/25 12:28 Blood Pressure 133/91 H 07/21/25 12:28 Pulse Oximetry 97 07/21/25 12:28 Oxygen Delivery Method Room Air 07/21/25 12:28 Medications Administered Medications: Discontinued Medications Generic Name Dose Route Start Last Admin Trade Name Freq PRN Reason Stop Dose Admin Diazepam 5 mg 07/21/25 13:05 07/21/25 13:35 Diazepam 5 Mg/Ml Inj IV 07/21/25 13:06 5 mg ONCE ONE Administration Sodium Chloride 1,000 mls @ 1,000 mls/hr 07/21/25 13:05 07/21/25 14:29 0.9 % Sodium Chloride 1000 Ml IV 07/21/25 14:04 Infused .Q1H ONE Infusion Ketorolac Tromethamine 30 mg 07/21/25 13:05 07/21/25 13:34 Ketorolac 30 Mg/Ml Inj IVP 07/21/25 13:06 30 mg ONCE ONE Administration Medical Decision Making MDM Narrative Medical decision making narrative: Does appear to be experiencing constipation. Post laxative induced intestinal colic and rectal passage bleeding. Check labs though to prompt further imaging beyond basic x-ray/two-view for possible diverticulitis. Discomfort is not clearly in adnexal area to suggest more an ovarian issue. Check standard labs for any evidence of anemia or further infectious etiology. Vomiting appears to have resolved and is not experiencing nausea currently to suggest more of an obstructive process. Maybe epiploic appendagitis or small hernia as explanation for mid abdominal pain? Mesenteric adenitis? IV initiated. Given normal saline and ketorolac and diazepam. Seems to prefer not to receive opiate pain medication. Longer-term, particularly if continuing to take this zepbound, sounds like will need some daily bowel aid to try to limit this pendulum constipation to laxative aided stools X-ray abdominal flat and upright independently reviewed by me shows some air- fluid levels but I would does not look like an obstructive pattern. There is stool in the right side: Anoscopy exam shows about 3 internal hemorrhoids; a couple clots fresh most notable at 6 o'clock position Generally reassured by labs and repeat exam. Even normal CRP. Abdominal colic primary cause of pain and bleeding source I think is identified as internal hemorrhoids. I think watchful waiting treatment for symptoms would be acceptable. Given intensity of symptoms and residual pain, CT imaging could be warranted as well. Open conversation with Simran and . There is some concern of creeping evening alcohol ingestion in setting of family history of addiction. Simran and would like to proceed with CT imaging to be certain. I did independently review CT abdomen pelvis without contrast. There is some mild inflammatory changes in the umbilical area possibly. Fat containing hernia here? Radiology over-read below Study:?CT-Abdomen/Pelvis w/o-07/21/2025 3:37:14 PM Ordering Physician:?Gege Morris Final Report: Indication: SEVERE CRAMPING, ABD PAIN PERSISTENT PAIN Technique: CT abdomen/pelvis without IV contrast Comparison: None Findings: Lower thorax: The heart is at the upper limits of normal in size. Trace dependent atelectasis. Abdomen/pelvis: Small regions of decreased attenuation in the liver along the falciform ligament, incompletely characterized on this exam, but likely small regions of focal steatosis. The gallbladder and biliary system are unremarkable. The spleen is unremarkable. Small splenule near the splenic hilum. The pancreas and adrenal glands are unremarkable. The kidneys, ureters, and bladder are unremarkable. The uterus is unremarkable. Simple appearing right ovarian cyst measuring approximately 3.1 centimeters. No suspicious adnexal lesions. No evidence of bowel obstruction or inflammation. The appendix is normal. No free air, free fluid, or fluid collections. No abdominopelvic lymphadenopathy. Minimal calcific atherosclerosis of the aortoiliac system. Soft tissue/musculoskeletal: Diastasis recti with small fat containing umbilical hernia. No acute fracture or malalignment. Minimal degenerative changes of the spine. Impression: 1. No CT evidence of an acute process involving the abdomen or pelvis. 2. Incidental findings as detailed above. Please note that all CT scans at this facility use dose modulation, iterative reconstruction, and/or weight-based dosing when appropriate to reduce radiation dose to as low as reasonably achievable. Dictated by Ketan Aguero MD @ 07/21/2025 3:54:03 PM Overall improved. Looks more comfortable. See patient discharge plan for further discussion I am relieved that you are feeling better. Focus on hydration. With that in mind also do take care with your alcohol intake as discussed. It does sound as though you might be reacting somewhat to the Zepbound; nausea at least is certainly not an uncommon side effect. I am prescribing some nausea medicine - Zofran from [facility]. It does sound also is if you need to manage your bowels daily as opposed to a dosing of bisacodyl or similar whenever you start to have some trouble. I would at least start taking daily MiraLax or Benefiber, either diluted in at least 8 oz of liquid up to 3 dosings per day adjusting to stool consistency to maintain soft, unformed stools. If you do think you are experiencing a hard plug, would consider softening from below with an enema. Sometimes a suppository overnight can be helpful as well. Further bowel cleanout can be accomplished with a bottle magnesium citrate orally. Return for marked increase in persistent pain, associated fever or associated increasing bleeding. Medical Records Medical records reviewed: Yes I reviewed the patient's medical records Lab Data Lab results reviewed: Yes I reviewed the patient's lab results Labs: Lab Results 07/21/25 Range/Units 13:20 WBC 7.07 (4.50-11.00) K/uL RBC 4.57 (4.00-5.20) m/uL Hgb 13.3 (12.0-16.0) gm/dL Hct 40.7 (33.0-51.0) % MCV 89 (80-100) fL MCH 29 (26-34) pg MCHC 33 (32-36) gm/dL RDW Coeff of Glenna 12.7 (11.5-15.5) % Plt Count 254 (140-440) K/uL Neut % (Auto) 57.6 (42.0-72.0) % Lymph % (Auto) 35.1 (20-44) % Wilcox % (Auto) 5.9 (0.0-11.0) % Eos % (Auto) 0.8 (0.0-7.0) % Baso % (Auto) 0.6 (0.0-3.0) % Neut # (Auto) 4.07 (1.7-7.0) K/uL Lymph # (Auto) 2.48 (0.90-2.90) K/uL Wilcox # (Auto) 0.40 (0.00-0.90) K/UL Eos # (Auto) 0.06 (0.00-0.50) K/uL Baso # (Auto) 0.04 (0.00-0.30) K/uL Abs Immat Gran (auto) 0.00 (0.00-0.30) K/uL Imm/Tot Granulo (auto) 0.0 % Sodium 134 L (135-149) mmol/L Potassium 4.0 (3.6-5.1) mmol/L Chloride 102 (96-114) mmol/L Carbon Dioxide 24 (20-32) mmol/L Anion Gap 8 (7-15) mEq/L BUN 12 (5-24) mg/dL Creatinine 0.6 (0.5-1.5) mg/dL Estimated Creat Clear 115.51 Estimated GFR 116 ml/min Glucose 101 (60-115) mg/dL Calcium 9.2 (8.4-10.6) mg/dL C-Reactive Protein 0.6 (0.5-1.0) mg/dL Discharge Plan Discharge Clinical Impression: Abdominal pain, colicky, Constipation, Bright red blood per rectum, Hemorrhoids, internal Patient Disposition: Home w/ Parent or Adult Condition: Improved Additional Instructions: I am relieved that you are feeling better. Focus on hydration. With that in mind also do take care with your alcohol intake as discussed. It does sound as though you might be reacting somewhat to the Zepbound; nausea at least is certainly not an uncommon side effect. I am prescribing some nausea medicine - Zofran from [facility]. It does sound also is if you need to manage your bowels daily as opposed to a dosing of bisacodyl or similar whenever you start to have some trouble. I would at least start taking daily MiraLax or Benefiber, either diluted in at least 8 oz of liquid up to 3 dosings per day adjusting to stool consistency to maintain soft, unformed stools. If you do think you are experiencing a hard plug, would consider softening from below with an enema. Sometimes a suppository overnight can be helpful as well. Further bowel cleanout can be accomplished with a bottle magnesium citrate orally. Return for marked increase in persistent pain, associated fever or associated increasing bleeding. Prescriptions: No Action alprazolam 0.5 mg tablet 0.5 - 1 mg PO QDAY Qty: 10 0RF Rx Instructions: 1-2 tablets 30min-60min prior to flight albuterol sulfate 90 mcg/actuation HFA aerosol inhaler 2 inhalation PRN escitalopram oxalate 20 mg tablet 20 mg PO DAILY Qty: 90 1RF rosuvastatin 5 mg tablet 5 mg PO DAILY Qty: 90 2RF Zepbound 5 mg/0.5 mL solution 5 mg subcut QWEEK Qty: 2 1RF valsartan 80 mg tablet 80 mg PO QDAY Qty: 90 0RF Rx Instructions: once daily for blood pressure Follow Up/Referrals: Lybarger,Mary Carmen J, PA-C [Primary Care Provider, Family Practice] Stand Alone Forms: [employer] Info Instructions
--- NOTE | 2025-07-21 13:05 | XR_ITS ---
Patient: DAPHNE ROJAS Facility:?[facility] Patient ID:?[id number] Site Patient ID:?[id number]. Site :?[id number] Study:?XRay-Abdomen/Pelvis 2 VIEW-07/21/2025 1:44:50 PM Ordering Physician:Beckie Morris Final Report: Indication: Abdominal pain, bloody stool Technique: Abdomen 3 view. Comparison: None. Findings/Impression: Bowel: Few air-fluid levels are noted within small bowel loops in the right hemiabdomen. No dilated bowel loops. Stool is noted within the right hemicolon. Soft tissues: No sign of free air. No sign of soft tissue mass. No suspicious calcifications. Bones: No acute abnormality. Dictated by Racheal Mcdermott MD @ 07/21/2025 1:48:16 PM ----- ADDENDUM ----- Correction to exam technique: 4 views of the abdomen. Dictated by Racheal Mcdermott MD @ Jul 21 2025 1:48PM Signed by:?Racheal Mcdermott MD @07/21/2025 1:48:16 PM (Electronic Signature)
[2025-07-21] MEDS: diazePAM 5 MG/ML inj IV (13:35)
[2025-07-21 13:49] LABS: Hematocrit 40.7 % (33.0-51.0); Hemoglobin* 13.3 gm/dL (12.0-16.0); Immature Granulocytes Abs Auto 0.00 K/uL (0.00-0.30); Immature Granulocytes Pct Auto 0.0 %; Lymphocytes Absolute Auto 2.48 K/uL (0.90-2.90); Mean Corpuscular HGB Conc 33 gm/dL (32-36); Mean Corpuscular Hemoglobin 29 pg (26-34); Mean Corpuscular Volume 89 fL (80-100); RDW Coefficient of Variation % 12.7 % (11.5-15.5); Red Blood Count 4.57 m/uL (4.00-5.20); White Blood Count* 7.07 K/uL (4.50-11.00)
[2025-07-21 13:54] LABS: Chloride* 102 mmol/L (96-114); Potassium* 4.0 mmol/L (3.6-5.1); Sodium* 134 mmol/L (135-149)
[2025-07-21 13:58] LABS: Anion Gap 8 mEq/L (7-15); Blood Urea Nitrogen* 12 mg/dL (5-24); Calcium* 9.2 mg/dL (8.4-10.6); Carbon Dioxide* 24 mmol/L (20-32); Creatinine* 0.6 mg/dL (0.5-1.5); Est. Creatinine Clearance* 115.51; Estimated Glomerular Filt Rate 116 ml/min; Glucose* 101 mg/dL (60-115)
[2025-07-21 14:04] LABS: Slide Review Reflex No
--- NOTE | 2025-07-21 15:20 | CRLHL7_ITS ---
For Patients: As a result of the Century Cures Act, medical imaging exams and procedure reports are released immediately into your electronic medical record. You may view this report before your referring provider. If you have questions, please contact your health care provider. Indication: SEVERE CRAMPING, ABD PAIN PERSISTENT PAIN Technique: CT abdomen/pelvis without IV contrast Comparison: None Findings: Lower thorax: The heart is at the upper limits of normal in size. Trace dependent atelectasis. Abdomen/pelvis: Small regions of decreased attenuation in the liver along the falciform ligament, incompletely characterized on this exam, but likely small regions of focal steatosis. The gallbladder and biliary system are unremarkable. The spleen is unremarkable. Small splenule near the splenic hilum. The pancreas and adrenal glands are unremarkable. The kidneys, ureters, and bladder are unremarkable. The uterus is unremarkable. Simple appearing right ovarian cyst measuring approximately 3.1 centimeters. No suspicious adnexal lesions. No evidence of bowel obstruction or inflammation. The appendix is normal. No free air, free fluid, or fluid collections. No abdominopelvic lymphadenopathy. Minimal calcific atherosclerosis of the aortoiliac system. Soft tissue/musculoskeletal: Diastasis recti with small fat containing umbilical hernia. No acute fracture or malalignment. Minimal degenerative changes of the spine. Impression: 1. No CT evidence of an acute process involving the abdomen or pelvis. 2. Incidental findings as detailed above. Please note that all CT scans at this facility use dose modulation, iterative reconstruction, and/or weight-based dosing when appropriate to reduce radiation dose to as low as reasonably achievable. Dictated by Ketan Aguero MD @ 07/21/2025 3:54:03 PM (Electronically Signed)
== END 2025-07-21 16:35 | disposition home or self-care (01) ==
PROVIDERS: Emergency Provider Family Medicine; PCP Physician Assistant Medical
DX: R10.9 Unspecified abdominal pain (principal); R10.84 Generalized abdominal pain; K59.00 Constipation, unspecified; K62.5 Hemorrhage of anus and rectum; K64.8 Other hemorrhoids
CPT/HCPCS: 36415; 74019; 74176; 80048; 85025; 86140; 96374; 96375; 99284; 99285; J1885; J3360; J7030